=== PATIENT | male | born 1960 | race Caucasian/White ===

== ENCOUNTER → 2019-07-13 | Outpatient (CLI) | payer BC ==
--- NOTE | 2019-07-13 11:57 | CARD ---
MR#: [id number] Date of Study: 07/13/2019 Ordering Physician: UMER GAFFNEY, Referring Physician: UMER GAFFNEY, Tech: Lois Benítez DURGA APPROVED REPORT EXAM: Two-dimensional and M-mode echocardiogram with Doppler and color Doppler. Other Information Quality : GoodHR: 90bpm Rhythm : NSR INDICATION Murmur 2D DIMENSIONS RVDd3.1 (2.9-3.5cm)Left Atrium(2D)4.3 (1.6-4.0cm) IVSd1.0 (0.7-1.1cm)Aortic Root(2D)3.2 (2.0-3.7cm) LVDd5.9 (3.9-5.9cm)LVOT Diameter2.3 (1.8-2.4cm) PWd0.9 (0.7-1.1cm)LVDs3.7 (2.5-4.0cm) FS (%) 37.8 %SV115.4 ml LVEF(%)67.1 (>50%) M-Mode DIMENSIONS Left Atrium(MM)4.65 (2.5-4.0cm)Aortic Root3.47 (2.2-3.7cm) Aortic Valve AoV Peak Phil.121.7cm/sAoV VTI23.0cm AO Peak GR.5.9mmHgLVOT Peak Phil.87.3cm/s LVOT VTI 17.24cmAO Mean GR.3mmHg STAN (VMAX)2.93ge8GNE (VTI)3.00cm2 Mitral Valve MV E Tustedrf120.5cm/sMV E Peak Gr.132mmHg MV DECEL [id number] A Atpzrony56.0cm/s MV E Mean Gr.5mmHgE/A Ratio1.7 Pulmonary Valve PV Peak Smukjttw283.6cm/sPV Peak Grad.6mmHg Pulmonary Vein S1 Hxtipcns90.2cm/sD2 Cpxwswnt911.7cm/s LEFT VENTRICLE The left ventricle is normal size. There is normal left ventricular wall thickness. The left ventricu lar systolic function is normal. The Ejection Fraction is 60-65%. There is normal LV segmental wall m otion. RIGHT VENTRICLE The right ventricle is normal size. There is normal right ventricular wall thickness. The right ventr icular systolic function is normal. ATRIA The left atrium is mildly dilated. The right atrium size is normal. The interatrial septum is intact with no evidence for an atrial septal defect or patent foramen ovale as noted on 2-D or Doppler imagi ng. AORTIC VALVE The aortic valve is calcified but opens well. The aortic valve is trileaflet. Doppler and Color Flow revealed no significant aortic regurgitation. There is no significant aortic valvular stenosis. MITRAL VALVE The mitral valve is mildly thickened. There is a partially flail posterior mitral valve leaflet. Ther e is no mitral valve stenosis. Doppler and Color-flow revealed severe mitral regurgitation. TRICUSPID VALVE The tricuspid valve is normal in structure and function. Doppler and Color Flow revealed no tricuspid valve regurgitation noted. There is no tricuspid valve prolapse or vegetation. There is no tricuspid valve stenosis. PULMONIC VALVE The pulmonary valve is normal in structure and function. Doppler and Color Flow revealed no pulmonic valvular regurgitation. There is no pulmonic valvular stenosis. GREAT VESSELS The aortic root is normal in size. The ascending aorta is normal in size. The IVC is normal in size a nd collapses >50% with inspiration. PERICARDIAL EFFUSION There is no evidence of significant pericardial effusion. Critical Notification Critical Value: No <Conclusion> The left ventricular systolic function is normal. The Ejection Fraction is 60-65%. There is normal LV segmental wall motion. There is a partially flail posterior mitral valve leaflet. Severe mitral regurgitation. There is no evidence of significant pericardial effusion. Signed by : Juan Pablo Simons, Electronically Approved : 07/13/2019 10:44:56
== END | disposition home or self-care (01) ==
LOC: ECHO 09:31
DX: I08.0 Rheumatic disorders of both mitral and aortic valves (principal)
CPT/HCPCS: 93306